=== PATIENT | male | born 1955 | race Caucasian/White ===

== ENCOUNTER 2018-04-11 07:17 | Emergency (ER) | payer OTHER ==
[~2018-04-11] VITALS: Ht 185.4 cm; Wt 95.0 kg
[2018-04-11 07:53] VITALS: BP 138/70
== END 2018-04-11 07:56 | disposition home or self-care (01) | DRG 951 ==
LOC: ED 07:17
DX: Z20.818 Contact with and (suspected) exposure to other bacterial communicable diseases (principal)